=== PATIENT | female | born 1990 | race Caucasian/White ===

== ENCOUNTER 2016-07-18 21:01 | Emergency (ER) | payer OTHER ==
[~2016-07-18] VITALS: Ht 157.5 cm; Wt 68.2 kg
[~2016-07-18 21:01] MED LIST: BIRTH CONTROL PILL; HYDR-3479 PO; IBUP-1827 PO; OXYC-284 PO
[2016-07-18 21:28] VITALS: BP 133/93; RESP 18; O2SAT 100
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
[2016-07-18] MEDS ORDERED: cefTRIAXone Inj 2,000 MG in Dextrose 5% Minibag Plus 50 ML IV ONE (23:25)
[2016-07-18] MEDS ORDERED: HYDROcodone-APAP 5-325 mg Tablet PO ONE (23:25)
[2016-07-18] MEDS ORDERED: Ofloxacin 0.3% 10 mL Otic Solution RIGHT_EAR SCH (23:25)
[2016-07-19] MEDS ORDERED: Ondansetron 2 mg/mL 2 mL Inj IVPUSH PRN (00:40)
[2016-07-19] MEDS ORDERED: HYDROmorphone 0.5 mg/0.5 mL iSecure Syringe IVPUSH ONE (00:40)
[2016-07-19 00:52] VITALS: BP 138/83; PULSE 103; RESP 16; O2SAT 100
== END 2016-07-19 00:51 | disposition home or self-care (01) ==
LOC: SED 21:01
DX: H66.011 Acute suppurative otitis media with spontaneous rupture of ear drum, right ear (principal); J02.9 Acute pharyngitis, unspecified
CPT/HCPCS: 96365; 99284; J0696; J1170; J2405